=== PATIENT | female | born 2000 | race African-American/Black ===

== ENCOUNTER 2021-01-19 18:41 | Emergency (ER) | payer OTHER ==
[~2021-01-19] VITALS: Ht 162.6 cm; Wt 79.4 kg
[2021-01-19] MEDS ORDERED: IRON18 M1 PO (19:46)
[2021-01-19] MEDS ORDERED: IRON325 M1 PO (19:47)
[2021-01-19 19:59] LABS: URINE BILIRUBIN NEGATIVE (Negative); URINE BLOOD NEGATIVE (Negative); URINE CLARITY CLEAR; URINE COLOR YELLOW; URINE GLUCOSE-RANDOM* NEGATIVE (Negative); URINE KETONES NEGATIVE (Negative); URINE LEUKOCYTES-REFLEX NEGATIVE (Negative); URINE NITRITE-REFLEX NEGATIVE (Negative); URINE PROTEIN (DIPSTICK) NEGATIVE (Negative)
[2021-01-19 22:06] VITALS: BP 110/74
== END 2021-01-19 22:07 | disposition home or self-care (01) ==
LOC: ER 18:41
PROVIDERS: Nurse Practitioner
DX: O20.0 Threatened abortion (principal); Z3A.08 8 weeks gestation of pregnancy; Z79.899 Other long term (current) drug therapy